=== PATIENT | female | born 1985 | race Caucasian/White ===

== ENCOUNTER 2020-02-18 00:36 | Emergency (ER) | payer OTHER ==
--- NOTE | 2020-02-18 01:23 | EDM.PDOC ---
ED HPI GENERAL MEDICAL PROBLEM - General Chief Complaint: Respiratory Problem Stated Complaint: SINUS INFECTION Time Seen by Provider: 02/18/20 00:39 Source of Information: Reports: Patient History Limitations: Reports: No Limitations - History of Present Illness INITIAL COMMENTS - FREE TEXT/NARRATIVE: 35F PMHx obesity and TOB use presents for "sinus infection". Patient notes about a week of sore throat, sinus congestion, rhinorrhea, and pain in her b/l neck w/ "gland swelling". Notes chronic smokers cough. No SOB. Negative COVID swab a couple of days ago. Concerned for sinus infection. throat Pain Score (Numeric/FACES): 5 - Related Data Allergies Allergy/AdvReac Type Severity Reaction Status Date / Time Penicillins Allergy Anaphylactic Verified 02/18/20 01:14 Shock Sulfa (Sulfonamide Allergy Anaphylactic Verified 02/18/20 01:14 Antibiotics) Shock Home Meds: Home Meds Cholecalciferol (Vitamin D3) [Vitamin D] 5,000 unit PO 02/18/20 [History] Doxycycline Hyclate 200 mg PO BID 5 Days #10 tablet. 02/18/20 [Rx] Doxycycline Hyclate 200 mg PO BID 5 Days #10 tablet. 02/18/20 [Rx] Pantoprazole Sodium [Protonix] 20 mg PO DAILY 02/18/20 [History] ED ROS GENERAL - Review of Systems Review Of Systems: Comprehensive ROS is negative, except as noted in HPI. ED EXAM, GENERAL - Physical Exam Exam: See Below Exam Limited By: No Limitations General Appearance: Alert, WD/WN Nose: Normal Inspection Throat/Mouth: Normal Inspection, Other (inflammation b/l oropharynx) Neck: Normal Inspection Respiratory/Chest: No Respiratory Distress, Lungs Clear, Normal Breath Sounds, No Accessory Muscle Use Cardiovascular: Normal Peripheral Pulses, Regular Rate, Rhythm Neurological: Alert Psychiatric: Normal Affect, Normal Mood Skin Exam: Warm, Dry Lymphatic: No Adenopathy Course - Vital Signs Last Recorded V/S: Last Vital Signs Temp 97.6 F 02/18/20 01:15 Pulse 83 02/18/20 01:15 Resp 18 02/18/20 01:15 BP 148/108 H 02/18/20 01:15 Pulse Ox 98 02/18/20 01:15 - Re-Assessments/Exams Free Text/Narrative Re-Assessment/Exam: 02/18/20 01:40 will get CXR, patient would like antibiotics, allergic to augmentin, declines Z- pack, will give doxycyline for sinusitis Departure - Departure Time of Disposition: 02:35 Disposition: Home, Self-Care 01 Condition: Good Clinical Impression: Sinusitis Qualifiers: Sinusitis location: frontal Chronicity: acute Recurrence: non-recurrent Qualified Code(s): J01.10 - Acute frontal sinusitis, unspecified - Discharge Information Prescriptions: Doxycycline Hyclate 200 mg PO BID 5 Days #10 tablet. Doxycycline Hyclate 200 mg PO BID 5 Days #10 tablet. Instructions: Sinusitis, Adult, [id number] Referrals: PCP,None [Primary Care Provider] - Forms: ED Department Discharge Additional Instructions: The following information is given to patients seen in the emergency department who are being discharged to home. This information is to outline your options for follow-up care. We provide all patients seen in our emergency department with a follow-up referral. The need for follow-up, as well as the timing and circumstances, are variable depending upon the specifics of your emergency department visit. If you don't have a primary care physician on staff, we will provide you with a referral. We always advise you to contact your personal physician following an emergency department visit to inform them of the circumstance of the visit and for follow-up with them and/or the need for any referrals to a consulting specialist. The emergency department will also refer you to a specialist when appropriate. This referral assures that you have the opportunity for follow-up care with a specialist. All of these measure are taken in an effort to provide you with optimal care, which includes your follow-up. Under all circumstances we always encourage you to contact your private physician who remains a resource for coordinating your care. When calling for follow-up care, please make the office aware that this follow-up is from your recent emergency room visit. If for any reason you are refused follow-up, please contact the [facility] Emergency Department at and asked to speak to the emergency department charge nurse. Sepsis Event Note (ED) - Evaluation Sepsis Screening Result: No Definite Risk - Focused Exam Vital Signs: Vital Signs Temp Pulse Resp BP Pulse Ox 02/18/20 01:15 97.6 F 83 18 148/108 H 98
--- NOTE | 2020-02-18 02:16 | CR ---
INDICATION: Chest pain. TECHNIQUE: Chest radiograph 1 view COMPARISON: None FINDINGS: Moderate degradation of image quality noted due to body habitus. Mediastinum: The mediastinum is normal in appearance. The heart silhouette is normal in size and morphology. Lung: Both lungs are unremarkable in appearance. No sign of pleural effusion seen. No pneumothorax is identified. Bone and Soft tissue: Unremarkable for age. IMPRESSION: 1. No acute cardiopulmonary disease is seen. Dictated by: Moustapha Layton MD @ 02/18/2020 02:16:10 (Electronically Signed)
== END 2020-02-18 02:46 | disposition home or self-care (01) ==
LOC: MW.ED 00:36
DX: J01.10 Acute frontal sinusitis, unspecified (principal); Z88.0 Allergy status to penicillin; Z88.2 Allergy status to sulfonamides; Z79.899 Other long term (current) drug therapy
CPT/HCPCS: 71045; 71045-26; 99283-25

== ENCOUNTER 2020-09-02 18:31 | Emergency (ER) | payer OTHER ==
[2020-09-02] MEDS ORDERED: predniSONE 20 MG Tab PO ONE (19:09)
[2020-09-02] MEDS ORDERED: Albuterol/Ipratropium 3.0-0.5 MG/3 ML Neb Soln NEB ONE (19:09)
--- NOTE | 2020-09-02 19:14 | EDM.PDOC ---
ED HPI GENERAL MEDICAL PROBLEM - General Chief Complaint: Respiratory Problem Stated Complaint: POSSIBLE BRONCHITIS Time Seen by Provider: 09/02/20 18:44 - History of Present Illness INITIAL COMMENTS - FREE TEXT/NARRATIVE: HISTORY AND PHYSICAL: History of present illness: This is a 35-year-old female with a history significant for bronchitis that occurs annually that requires antibiotics who presents ER today secondary to yel low productive cough times several days. Patient reports that she had no fevers at home. Patient reports no vomiting or diarrhea. Patient reports pain in her throat and chest. Patient reports the chest pain is sharp and increases with deep inspiration and coughing. Patient denies any dysuria, frequency, urgency, abdominal pain. 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 Patient reports that her last test was several days ago and it was negative. Patient reports she is been tolerating p.o. as well. Patient reports that she feels well otherwise. Review of systems: As per history of present illness and below otherwise all systems reviewed and negative. Past medical history: As per history of present illness and as reviewed below otherwise noncontributory. Surgical history: As per history of present illness and as reviewed below otherwise noncontributory. Social history: No reported history of drug or alcohol abuse. Family history: As per history of present illness and as reviewed below otherwise noncontributory. Physical exam: This patient was seen and evaluated during the 2019 SARS-CoV-2 novel coronavirus pandemic period. Community viral transmission is ongoing at time of this encounter and the emergency department is operating under pandemic response procedures. Pulse ox 98% during my evaluation the room on room air. Patient ambulating in the room without any difficulty. Constitutional: Patient is oriented to person, place, and time. Appears well- developed and well-nourished. No distress. HEENT: Moist mucous membranes Head: Normocephalic and atraumatic Eyes: Right eye exhibits no discharge. Left eye exhibits no discharge. No scleral icterus Neck: Normal range of motion. No tracheal deviation present. Cardiovascular: Normal rate and regular rhythm. Pulmonary: Effort normal, no respiratory distress. Mild end expiratory wheezing speaking full sentences does not appear in any acute distress. Abdominal: No distention Musculoskeletal: Normal range of motion Neurologic: Alert and oriented to person, place and time. Skin: [place], warm and dry. Psychiatric: Normal mood and affect. Behavior is normal. Judgment and thought content normal. Nursing note and vital signs have been reviewed Diagnostics: Chest Xray: Normal cardiac silhouette No infiltrates or effusions identified. No PTX No evidence of acute bony fracture. As interpreted by ER MD: [employer]: DuoNeb x1 Prednisone 50 mg p.o. Doxycycline 100 mg p.o. twice daily x10 days Albuterol MDI for outpatient use Assessment and plan: This is a 35-year-old female who presents ER today secondary to cough, congestion, upper respiratory symptoms. Patient reports she is Covid negative as of several days ago. Patient ports that she gets bronchitis very similar almost every year and requires antibiotics. Patient is requesting an MDI antibiotics for symptoms. Will obtain chest x-ray to rule out pneumonia, DuoNeb in the ED, prednisone and Zithromax. Patient currently is clinically hemodynamically stable with a pulse ox of 98 to 99% on room air. At this time, the patient does not be criteria for inpatient level of care and can be managed well as an outpatient. Reassessment at the time of disposition demonstrates that the patient is in no acute distress. The patient has remained stable throughout the entire ED visit and is without objective evidence for acute process requiring urgent intervention or hospitalization. The patient is stable for discharge, counseling is provided as documented above, discussed symptomatic treatment and specific conditions for return. I have spoken with the patient/caregiver and discussed todays findings, in addition to providing specific details for the plan of care. Questions are answered and there is agreement with the plan. Definitive disposition and diagnosis as appropriate pending reevaluation and review of above. - Related Data Allergies Allergy/AdvReac Type Severity Reaction Status Date / Time Penicillins Allergy Anaphylactic Verified 09/02/20 18:46 Shock Sulfa (Sulfonamide Allergy Anaphylactic Verified 09/02/20 18:46 Antibiotics) Shock Home Meds: Home Meds Cholecalciferol (Vitamin D3) [Vitamin D] 5,000 unit PO DAILY 02/18/20 [History] Pantoprazole Sodium [Protonix] 20 mg PO DAILY 02/18/20 [History] Albuterol Sulfate [Albuterol Sulfate HFA] 8.5 gm INH Q6H PRN #1 inhaler 09/02/20 [Rx] Doxycycline [Vibramycin] 100 mg PO BID 10 Days #20 cap 09/02/20 [Rx] predniSONE [Prednisone] 50 mg PO DAILY #5 tablet 09/02/20 [Rx] Past Medical History HEENT History: Reports: None Cardiovascular History: Reports: None Respiratory History: Reports: Bronchitis, Recurrent Gastrointestinal History: Reports: GERD Genitourinary History: Reports: None DRILL [employer]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: Musculoskeletal History: Reports: None Neurological History: Reports: None Psychiatric History: Reports: None Endocrine/Metabolic History: Reports: Obesity/BMI 30+ Hematologic History: Reports: None Dermatologic History: Reports: None - Infectious Disease History Infectious Disease History: Reports: MRSA Social & Family History - Family History Family Medical History: No Pertinent Family History - Tobacco Use Packs/Tins Daily: 1 - Caffeine Use Caffeine Use: Reports: None - Recreational Drug Use Recreational Drug Use: No ED ROS GENERAL - Review of Systems Review Of Systems: See Below ED EXAM, GENERAL - Physical Exam Exam: See Below Course - Vital Signs Last Recorded V/S: Last Vital Signs Temp 97 F 09/02/20 18:43 Pulse 94 09/02/20 18:43 Resp 20 09/02/20 18:43 BP 172/102 H 09/02/20 18:43 Pulse Ox 94 L 09/02/20 18:43 - Orders/Labs/Meds Meds: Medications Discontinued Medications Generic Name Dose Route Start Last Admin Trade Name Johnna PRFrank Reason Stop Dose Admin Albuterol/Ipratropium 3 ml 09/02/20 19:09 09/02/20 19:18 Duoneb 3.0-0.5 Mg/3 Ml NEB 09/02/20 19:10 3 ml ONETIME ONE Administration Amoxicillin Confirm 09/02/20 19:30 09/02/20 19:33 Amoxil Administered 09/02/20 19:31 Not Given Dose 500 mg .ROUTE .STK-MED ONE Azithromycin 500 mg 09/02/20 19:09 09/02/20 19:34 Zithromax PO 09/02/20 19:10 Not Given ONETIME ONE Doxycycline Hyclate Confirm 09/02/20 19:32 09/02/20 19:35 Vibramycin Administered 09/02/20 19:33 Not Given Dose 100 mg .ROUTE .STK-MED ONE Doxycycline Hyclate 100 mg 09/02/20 19:34 09/02/20 19:35 Vibramycin PO 09/02/20 19:35 100 mg ONETIME ONE Administration Prednisone 50 mg 09/02/20 19:09 09/02/20 19:20 Prednisone PO 09/02/20 19:10 50 mg ONETIME ONE Administration Departure - Departure Time of Disposition: 20:04 Disposition: Home, Self-Care 01 Condition: Good Clinical Impression: Bronchitis, Tobacco use - Discharge Information Instructions: Acute Bronchitis, Adult, Steps to Quit Smoking, [id number] Referrals: PCP,Not In Area [Primary Care Provider] - Forms: ED Department Discharge Additional Instructions: You were seen and evaluated in the ER today secondary to cough and symptoms of bronchitis. Your chest x-ray reveals no evidence of pneumonia. Your oxygen level is within normal limits. You have been given a dose of doxycycline, antibiotic and you will be sent home with a 10-day course. You will also be given a course of steroids for 5 days. You also be given a prescription for an albuterol inhaler to assist you with wheezing. Please make appointment see your family doctor in the next 1 to 2 days to be reevaluated. The following information is given to patients seen in the emergency department who are being discharged to home. This information is to outline your options for follow-up care. We provide all patients seen in our emergency department with a follow-up referral. The need for follow-up, as well as the timing and circumstances, are variable depending upon the specifics of your emergency department visit. If you don't have a primary care physician on staff, we will provide you with a referral. We always advise you to contact your personal physician following an emergency department visit to inform them of the circumstance of the visit and for follow-up with them and/or the need for any referrals to a consulting specialist. The emergency department will also refer you to a specialist when appropriate. This referral assures that you have the opportunity for follow-up care with a specialist. All of these measure are taken in an effort to provide you with optimal care, which includes your follow-up. Under all circumstances we always encourage you to contact your private ebony joseph who remains a resource for coordinating your care. When calling for follow-up care, please make the office aware that this follow-up is from your recent emergency room visit. If for any reason you are refused follow-up, please contact the [facility] Emergency Department at and asked to speak to the emergency department charge nurse. [facility] - [facility] [address], [place] [address] [address] Sepsis Event Note (ED) - Evaluation Sepsis Screening Result: No Definite Risk - Focused Exam Vital Signs: Vital Signs Temp Pulse Resp BP Pulse Ox 09/02/20 18:43 97 F 94 20 172/102 H 94 L
[2020-09-02] MEDS: Azithromycin 250 MG Tab PO ONE ×2 (19:20→19:34)
[2020-09-02] MEDS ORDERED: Amoxicillin 500 MG Cap ONE (19:30)
[2020-09-02] MEDS ORDERED: Doxycycline 100 MG Cap ONE (19:32)
[2020-09-02] MEDS ORDERED: Doxycycline 100 MG Cap PO ONE (19:34)
--- NOTE | 2020-09-02 19:58 | CR ---
INDICATION: Cough TECHNIQUE: PA and lateral views of the chest COMPARISON: AP chest radiograph 02/18/2020 FINDINGS: The lungs are clear. There is no pleural effusion or pneumothorax. The cardiomediastinal silhouette is normal. The osseous structures are unremarkable. IMPRESSION: No acute intrathoracic process. Dictated by Vinicio Mistry MD @ Sep 02 2020 7:56PM Signed by Dr. Vinicio Mistry @ Sep 02 2020 7:58PM
== END 2020-09-02 20:25 | disposition home or self-care (01) ==
LOC: MW.ED 18:31
DX: J40 Bronchitis, not specified as acute or chronic (principal); Z72.0 Tobacco use; K21.9 Gastro-esophageal reflux disease without esophagitis; E66.9 Obesity, unspecified; Z88.0 Allergy status to penicillin; Z88.2 Allergy status to sulfonamides; Z68.43 Body mass index [BMI] 50.0-59.9, adult; Z79.899 Other long term (current) drug therapy
CPT/HCPCS: 71046; 94640; 99283; A9270; J7620-GY

== ENCOUNTER 2021-09-03 13:32 | Emergency (ER) | payer OTHER | END 2021-09-03 14:52 | disposition home or self-care (01) | LOC: MW.ED 13:32 | DX: M25.562 Pain in left knee (principal); E66.9 Obesity, unspecified; Z68.31 Body mass index [BMI] 31.0-31.9, adult; Z88.0 Allergy status to penicillin; Z88.2 Allergy status to sulfonamides | CPT/HCPCS: 73562-26-LT; 73562-LT; 99283 ==